=== PATIENT | male | born 1945 | race Caucasian/White ===

== ENCOUNTER 2020-04-22 08:31 | Day surgery (SDC) | payer MEDICARE, MEDICAID ==
[2020-04-14 15:02] LABS: BASOPHILS % (AUTO) 0.5 % (0-1); EOSINOPHILS # (AUTO) 0.1 X10'3 (0-0.9); EOSINOPHILS % (AUTO) 2.1 % (0-6); LYMPHOCYTES # (AUTO) 1.7 X10'3 (1.1-4.8); MEAN CORPUSCULAR HEMOGLOBIN 33.2 PG (27.0-31.0); MEAN CORPUSCULAR HGB CONC 32.9 g/dL (33.0-36.5); MEAN CORPUSCULAR VOLUME 100.9 FL (78-98); MEAN PLATELET VOLUME 10.5 FL (7.4-10.4); MONOCYTES # (AUTO) 0.7 X10'3 (0-0.9); NEUTROPHILS % (AUTO) 60.4 % (42-75); PRE OP HEMATOCRIT 40.5 % (42.0-52.0); PRE OP HEMOGLOBIN 13.3 g/dL (14.0-17.9); PRE OP PLATELET COUNT 181 X10'3 (140-440); RED BLOOD COUNT 4.01 X10'6 (4.70-6.10); RED CELL DISTRIBUTION WIDTH 14.4 % (11.5-14.5)
[2020-04-14 15:20] LABS: ALBUMIN 3.6 G/DL (3.4-5.0); ALKALINE PHOSPHATASE 261 IU/L (46-116); BLOOD UREA NITROGEN 14 MG/DL (7-18); BUN/CREATININE RATIO 12.8 (5.4-32.0); CALCIUM 8.6 MG/DL (8.5-10.1); CHLORIDE 105 MMOL/L (99-107); CREATININE 1.09 MG/DL (0.60-1.10); PRE OP ALT 27 U/L (30-65); PRE OP ANION GAP 8 (8-16); PRE OP AST 21 U/L (10-37); PRE OP BILIRUB, TOTAL 1.1 MG/DL (0.0-1.0); PRE OP GLUCOSE 91 MG/DL (70-104); PRE OP POTASSIUM 3.9 MMOL/L (3.4-5.1); PRE OP SODIUM 138 MMOL/L (135-145); TOTAL CARBON DIOXIDE 24.9 MMOL/L (24-32); TOTAL PROTEIN 7.2 G/DL (6.4-8.2); eGFR 66 ML/MIN
[2020-04-22] VITALS (7 sets, daily range): BP systolic 122–132; BP diastolic 53–88
[~2020-04-22] VITALS: Ht 177.8 cm; Wt 99.8 kg
[~2020-04-22 08:31] MED LIST: APIX5TAB3 PO; ATOR40TA PO; CYAN250010 PO; FEXO-124 PO; FLO0.4C PO; FOLI0.8C PO; FURO-150 PO; HYDR-3972 PO; IPRA4AER IH; MELA10TA2 PO; MONT10TA26 PO; POTA10TA36 PO; UMEC1DIS INH; VITA400T10 PO; ceFAZolin 2gm in dextrose, iso 50 ML IV ONE; famotidine 20mg tablet PO ONE; ringers solution, lacted 1,000 ML IV SCH; vancomycin 1,500 MG in NS 300ml IV soln IV ONE
--- NOTE | 2020-04-22 10:56 | NUR ---
PT HAS DOG SCRATCHES ON OPERATIVE RIGHT ARM AND ALSO A HUGE BRUISE ON UPPER RIGHT ARM. DR FRANCISCO IN TO SEE PT, SURGERY STILL PLANNED FOR LATER TODAY.
[2020-04-22 11:02] LABS: PRE OP INR 1.2 INR; PRE OP PROTIME 12.4 SECONDS (9.0-12.0)
[2020-04-22] MEDS ORDERED: morphine 4 MG/ML inj SYRINge IV PRN (12:05)
[2020-04-22] MEDS ORDERED: morphine 2 MG/ML inj. syringe IV PRN (12:05)
[2020-04-22] MEDS ORDERED: ondansetron/PF 4mg/2ml inj IV PRN (12:05)
[2020-04-22] MEDS ORDERED: acetaminophen 1,000mg/100ml IV 100 ML IV PRN (12:05)
[2020-04-22] MEDS ORDERED: meperidine/PF 25mg/ml syringe IV PRN ×3 (12:05)
[2020-04-22] MEDS ORDERED: ringers solution, lacted 1,000 ML IV SCH (12:05)
[2020-04-22] MEDS ORDERED: proCHLORperazine 10 MG/2 ml inj IV PRN (12:05)
[2020-04-22] MEDS ORDERED: LIDOcaine 0.5% (5mg/ml) 50ml vial ONE (12:26)
[2020-04-22] MEDS ORDERED: methylPREDNISolone sod succ 125mg/2ml vial ONE (12:26)
[2020-04-22] MEDS ORDERED: BUPIVAcaine/PF 2.5 mg/ml (0.25%) 30ml vial ONE ×2 (12:26→13:14)
[2020-04-22] MEDS ORDERED: fentaNYL/PF 50MCG/1 ML 2ML syringe ONE (12:45)
[2020-04-22] MEDS ORDERED: midazolam 2 mg/2 ml injection ONE (12:46)
[2020-04-22] MEDS ORDERED: propofol inj 20 ML IV ONE (13:16)
--- NOTE | 2020-04-22 13:29 | NUR ---
Received from OR via DAIN , accompanied by Anesthesiologist JYOTI and report given by Anesthesiolgist. PATIENT WITH 20G PIV IN LEFT UE RUNNING LR AT 100. DENIES PAIN. MAS TO RIGHT HAND. DRESSED IN BIAS DRESSING THAT IS CDI. CHACE. + CAP REFILL. Addendum: 04/22/20 at 1344 by Semaj Echeverria RN, RN Amended: Links added.
--- NOTE | 2020-04-22 14:29 | NUR ---
PATIENT AND FAMILY AND THEY HAVE VERBALIZED UNDERSTANDING, OPPORTUNITY TO ASK QUESTIONS GIVEN AND PATIENT COMFORTABLE WITH DC. IV TAKEN OUT WITHOUT COMPLICATION. PATIENT HAS MET ALL DC CRITERIA FOR DC HOME. I HAVE REVIEWED D/C INSTRUCTIONS WITH OUT VIA WHEELCHAIR WHERE PATIENT WAS TAKEN HOME WITH ALL BELONGINGS. FAMILY GAVE PATIENT TRANSPORT HOME. Addendum: 04/22/20 at 1431 by Semaj Echeverria RN, RN Amended: Links added.
== END 2020-04-22 14:29 | disposition home or self-care (01) ==
LOC: PAS 08:31
PROVIDERS: ATTEND Orthopaedic Surgery
DX: G56.01 Carpal tunnel syndrome, right upper limb (principal); G56.21 Lesion of ulnar nerve, right upper limb; J44.9 Chronic obstructive pulmonary disease, unspecified; K21.9 Gastro-esophageal reflux disease without esophagitis; I48.91 Unspecified atrial fibrillation; G89.4 Chronic pain syndrome; E78.5 Hyperlipidemia, unspecified; E66.9 Obesity, unspecified; Z68.32 Body mass index [BMI] 32.0-32.9, adult; Z20.828 Contact with and (suspected) exposure to other viral communicable diseases; Z79.899 Other long term (current) drug therapy; Z79.01 Long term (current) use of anticoagulants; Z98.41 Cataract extraction status, right eye; Z98.42 Cataract extraction status, left eye; Z96.651 Presence of right artificial knee joint; Z98.890 Other specified postprocedural states; Z86.73 Personal history of transient ischemic attack (TIA), and cerebral infarction without residual deficits; Z82.49 Family history of ischemic heart disease and other diseases of the circulatory system
CPT/HCPCS: 36415; 64719; 64721; 80053; 82948; 85025; 85610; 85730; 87635; 93005; A6222; J2001; J2250; J2704; J2930; J3010; J3370; J3490; J7040; A4215; A6449; A7000; J7120